=== PATIENT | female | born 1975 | race Caucasian/White ===

== ENCOUNTER 2019-12-03 07:42 | Outpatient (CLI) | payer MEDICARE, MEDICAID, SELFPAY | END 2019-12-03 07:43 | disposition home or self-care (01) | PROVIDERS: PCP Family Medicine; Visit Provider Family Medicine | DX: H90.3 Sensorineural hearing loss, bilateral (principal) | CPT/HCPCS: 92557; 92567 ==

== ENCOUNTER 2021-10-31 14:03 | Outpatient (CLI) | payer MEDICARE, MEDICAID, SELFPAY | END 2021-10-31 14:04 | disposition home or self-care (01) | LOC: ANHAUDIO 14:08 | PROVIDERS: PCP Family Medicine; Visit Provider Family Medicine | DX: H90.0 Conductive hearing loss, bilateral (principal) | CPT/HCPCS: 92557; 92567 ==

== ENCOUNTER 2022-10-02 09:28 | Outpatient (CLI) | payer MEDICARE, MEDICAID, SELFPAY | END 2022-10-02 09:29 | disposition home or self-care (01) | LOC: ANHAUDIO 09:29 | PROVIDERS: PCP Family Medicine; Visit Provider Family Medicine | DX: H90.0 Conductive hearing loss, bilateral (principal) | CPT/HCPCS: 99199 ==

== ENCOUNTER 2022-10-23 14:25 | Outpatient (CLI) | payer MEDICARE, MEDICAID, SELFPAY | END 2022-10-23 14:26 | disposition home or self-care (01) | LOC: ANHAUDIO 14:27 | PROVIDERS: PCP Family Medicine; Visit Provider Family Medicine | DX: H90.3 Sensorineural hearing loss, bilateral (principal) | CPT/HCPCS: 92557; 92567 ==

== ENCOUNTER 2024-01-08 10:09 | Outpatient (CLI) | payer MEDICARE, MEDICAID, SELFPAY | END 2024-01-08 10:10 | disposition home or self-care (01) | PROVIDERS: PCP Family Medicine; Visit Provider Family Medicine | DX: H90.0 Conductive hearing loss, bilateral (principal) | CPT/HCPCS: 92552; 92556; 92567 ==